=== PATIENT | female | born 1950 | race Caucasian/White ===

== ENCOUNTER 2019-11-27 08:32 | Outpatient (REF) | payer MEDICARE, SELFPAY ==
[2019-11-27 10:16] LABS: Estmated Average Glucose 128; Hemoglobin A1C 6.1 % (4.0-6.0)
[2019-11-27 14:04] LABS: Chol HDL Ratio 7.44 mg/dL (0.0-4.40); Cholesterol 238 mg/dL (0-200); Glucose 90 mg/dL (65-115); HDL Cholesterol 32 mg/dL (60-100); LDL Cholesterol Calculated 127 mg/dL (50-129); LDL HDL Ratio 3.97 RATIO (0.00-3.22); Triglycerides 394 mg/dL (0-150)
== END 2019-11-27 08:33 | disposition home or self-care (01) ==
LOC: LAB 08:32
PROVIDERS: Family Provider Family Medicine; PCP Family Medicine; Visit Provider Dermatology
DX: Z01.89 Encounter for other specified special examinations (principal)
CPT/HCPCS: 80061; 82947; 83036

== ENCOUNTER → 2020-07-21 10:44 | Outpatient (BNVA) | payer MEDICARE, SELFPAY | PROVIDERS: Family Provider Family Medicine; PCP Family Medicine; Visit Provider Family Medicine | DX: I10 Essential (primary) hypertension (principal); M06.9 Rheumatoid arthritis, unspecified; M47.816 Spondylosis without myelopathy or radiculopathy, lumbar region; M79.7 Fibromyalgia; M05.79 Rheumatoid arthritis with rheumatoid factor of multiple sites without organ or systems involvement; I16.0 Hypertensive urgency; M81.0 Age-related osteoporosis without current pathological fracture | CPT/HCPCS: 80053; 80061; 83721; 85025; 85651; 86140 ==